=== PATIENT | female | born 1975 | race Caucasian/White ===

== ENCOUNTER 2016-12-08 13:21 | Inpatient (IN) | payer BC ==
[2016-12-08] VITALS (18 sets, daily range): BP systolic 101–122; BP diastolic 59–79
[~2016-12-08] VITALS: Ht 165.1 cm; Wt 74.5 kg
--- NOTE | 2016-12-08 13:21 | NUR ---
Pt brought in by [facility] 85 and [employer] post suspected overdose. Pt arrived with nasopharyngeal in place and is unresponsive. Dr Hackett, nursing staff and resp at bedside on arrival.
[2016-12-08] MEDS ORDERED: IV NS 1000 ML 1,000 ML IV ONE (13:30)
[2016-12-08] MEDS ORDERED: DEXTROSE 50% 50 ML DISP.SYRIN IV ONE ×2 (13:30→14:30)
[2016-12-08] MEDS ORDERED: NALOXONE 2 MG/2 ML SYRINGE ONE (13:34)
[2016-12-08] MEDS ORDERED: CYCL5TAB PO (13:37)
[2016-12-08] MEDS ORDERED: ESCI10TA PO (13:37)
[2016-12-08] MEDS ORDERED: ALPR0.5T PO (13:37)
[2016-12-08] MEDS ORDERED: ONDANSETRON 4 MG/2 ML VIAL ONE (13:37)
[2016-12-08] MEDS ORDERED: GABA300C PO (13:37)
[2016-12-08] MEDS ORDERED: HYDR-551 PO (13:37)
[2016-12-08] MEDS ORDERED: CITA40TA22 PO (13:37)
[2016-12-08] MEDS ORDERED: PANTOPRAZOLE SODIUM 40 MG VIAL ONE (13:37)
[2016-12-08] MEDS ORDERED: DEXTROSE 50% 50 ML DISP.SYRIN ONE ×2 (13:39→14:42)
[2016-12-08 13:40] LABS: ABG BASE EXCESS -10.2 mmol/L; ABG HCO3 15.7 mmol/L; ABG PCO2 34.9 mmHg (35.0-45.0); ABG PH 7.271 (7.350-7.450); ABG SITE RIGHT BRACHIAL; COHb 1.5 % (0.5-1.5); MetHb 0.4 % (0.0-1.5); O2Hb 87.3 % (94.0-97.0); VENT MODE NRB
[2016-12-08] MEDS ORDERED: NALOXONE HCL 0.4 MG/ML AMPUL IV ONE (13:45)
[2016-12-08] MEDS ORDERED: PANTOPRAZOLE SODIUM IV 40 MG in IV DEXTROSE 5% 100 ML IV ONE (13:45)
[2016-12-08] MEDS ORDERED: ONDANSETRON 4 MG/2 ML VIAL IV ONE (13:45)
[2016-12-08 13:57] LABS: BASOPHILS % (AUTO) 0.3 % (0.0-2.0); HEMATOCRIT 43.6 % (31.2-41.9); HEMOGLOBIN 14.5 g/dL (10.9-14.3); LYMPHOCYTES # (AUTO) 0.4 K/uL (20.0-40.0); LYMPHOCYTES % (AUTO) 7.1 % (20.5-51.5); MEAN CORPUSCULAR HEMOGLOBIN 29.6 uug (24.7-32.8); MEAN CORPUSCULAR HGB CONC 33 g/dL (32.3-35.6); MEAN CORPUSCULAR VOLUME 89.3 fL (75.5-95.3); MONOCYTES # (AUTO) 0.4 K/uL (2.0-10.0); MONOCYTES % (AUTO) 5.8 % (0.0-11.0); NEUTROPHILS # (AUTO) 5.4 K/uL (1.8-8.9); NEUTROPHILS % (AUTO) 86.8 % (38.5-71.5); PLATELET COUNT (AUTO) 306 K/uL (179-408); RED BLOOD CELL COUNT(AUTO) 4.89 MIL/uL (3.63-4.92); RED CELL DISTRIBUTION WIDTH 12.8 % (12.3-17.7); WHITE BLOOD COUNT (AUTO) 6.2 K/uL (3.8-11.8)
[2016-12-08] MEDS ORDERED: FLUMAZENIL 0.5 MG/5 ML VIAL IV ONE ×2 (14:00→14:15)
[2016-12-08 14:06] LABS: CARBON DIOXIDE 26 mmol/L (21-32); CHLORIDE 98 mmol/L (98-107); GFR 13 mL/min (>60); GLUCOSE 264 mg/dL (74-106); SODIUM SERUM 132 mmol/L (136-145); UREA NITROGEN, BLOOD 31 mg/dL (7-18)
[2016-12-08 14:08] LABS: CREATININE 3.9 mg/dL (0.6-1.3); POTASSIUM 8.8 mmol/L (3.5-5.1)
[2016-12-08 14:09] LABS: ACETONE, SERUM NEGATIVE (NEGATIVE)
[2016-12-08] MEDS ORDERED: IPRATROPIUM BROMIDE 0.5 MG/2.5 ML NEBU NEB ONE (14:15)
[2016-12-08] MEDS ORDERED: SODIUM BICARBONATE 4.2 % (NEUT) 5 ML VIAL IV ONE (14:15)
[2016-12-08] MEDS ORDERED: CALCIUM GLUCONATE IV 1 GM in IV DEXTROSE 5% 50 ML IV ONE (14:15)
[2016-12-08] MEDS ORDERED: ALBUTEROL SULFATE 2.5 MG/ 0.5 ML NEBU NEB ONE (14:15)
[2016-12-08] MEDS ORDERED: INSULIN REGULAR, HUMAN 1,000 UNITS/10 ML VIAL IV ONE (14:15)
[2016-12-08] MEDS ORDERED: methylPREDNISolone SOD SUCC 125 MG/2 ML VIAL IV ONE (14:15)
[2016-12-08 14:22] LABS: ALANINE AMINOTRANSFERASE 162 U/L (14-59); ALKALINE PHOSPHATASE 53 U/L (50-136); ASPARTATE AMINOTRANSFERASE 435 U/L (15-37); BILIRUBIN,TOTAL 0.8 mg/dL (0.2-1.0); TOTAL PROTEIN, SERUM 7.6 g/dL (6.4-8.2)
[2016-12-08] MEDS ORDERED: ALBUTEROL SULFATE 2.5 MG/3 ML NEBU ONE (14:31)
[2016-12-08 14:32] LABS: *BILIRUBIN,URIN NEGATIVE (NEGATIVE); *BLOOD, URINE 3+ (NEGATIVE); *CLARITY,URINE CLOUDY (CLEAR); *COLOR,URINE YELLOW (YELLOW); *KETONES,URINE NEGATIVE (NEGATIVE); *PROTEIN,URINE 2+ (NEGATIVE); *UROBILINOGEN,URINE 0.2 E.U./dl (NORMAL); LEUKOCYTE ESTERASE ,URINE NEGATIVE (NEGATIVE); NITRITE, URINE NEGATIVE (NEGATIVE); PH,URINE 5.5 (5.0-8.0); UGLUCOSE TRACE (NEGATIVE)
[2016-12-08] MEDS ORDERED: IPRATROPIUM BROMIDE 0.5 MG/2.5 ML NEBU ONE (14:32)
[2016-12-08] MEDS ORDERED: SODIUM BICARBONATE 8.4% 50 MEQ/50 ML DISP.SYRIN IV ONE (14:41)
[2016-12-08] MEDS ORDERED: CALCIUM CHLORIDE 1 GM/10 ML DISP.SYRIN IVP ONE (14:41)
[2016-12-08] MEDS ORDERED: methylPREDNISolone SOD SUCC 125 MG/2 ML VIAL ONE (14:42)
[2016-12-08] MEDS ORDERED: INSULIN REGULAR, HUMAN 300 UNIT/3 ML VIAL ONE (14:43)
[2016-12-08 14:44] LABS: *AMPHETAMINE, URINE NEGATIVE (NEGATIVE); *BARBITURATE, URINE NEGATIVE (NEGATIVE); *CANNABINOID, URINE NEGATIVE (NEGATIVE); *COCCAINE, URINE NEGATIVE (NEGATIVE); *OPIATE, URINE POSITIVE (NEGATIVE); *PHENCYCLIDINE SCREEN,URINE NEGATIVE (NEGATIVE)
[2016-12-08 14:55] LABS: WBC,URINE 0-3 /HPF (0-3)
[2016-12-08 14:56] LABS: MUCUS,URINE MODERATE /LPF (0-FEW); SQUAMOUS EPITHELIAL CELL,UR FEW /HPF (NONE SEEN); URINE AMORPHOUS URATE MANY /HPF
[2016-12-08 15:07] LABS: CREATINE KINASE, TOTAL 14660 U/L (26-192)
[2016-12-08] MEDS ORDERED: MAGNESIUM HYDROXIDE 30 ML LIQUID UDC PO PRN (15:15)
[2016-12-08] MEDS ORDERED: IV D5/ 0.9% NACL 1,000 ML IV PRN (15:15)
[2016-12-08] MEDS ORDERED: ENOXAPARIN SODIUM 40 MG/0.4 ML DISP.SYRIN SQ SCH (15:15)
--- NOTE | 2016-12-08 15:25 | NUR ---
Pt trans to CCU with ACLS guidelines in place.
--- NOTE | 2016-12-08 15:35 | NUR ---
Clinical Pharmacy Note: Vancomycin Dosing per Pharmacy Subjective: Vancomycin IV to start on this 41 yo female patient for possible PNA (patient overdosed- waiting for MD note) ht 5' 5'' wt 1505 lb Objective: BUN 31/Scr 3.9 WBC 6.2 Temperature 97.5 Assessment/Plan: Due to elevated srcr, will give vancomycin 1gm IVPB x1 today. Will review srcr in am & decide when to order vancomycin random level for further dosing. Will monitor renal function. Will follow daily.
--- NOTE | 2016-12-08 15:40 | NUR ---
admit pt.from ER.pt.lethargic no s/s of acute distress
[2016-12-08] MEDS ORDERED: INSULIN REGULAR, HUMAN 300 UNIT/3 ML VIAL SQ PRN (16:00)
[2016-12-08] MEDS ORDERED: DEXTROSE 50% 50 ML DISP.SYRIN IV PRN (16:00)
[2016-12-08 16:05] LABS: LACTIC ACID 5.4 mmol/L (0.4-2.0)
[2016-12-08] MEDS: BLOOD SUGAR DIAGNOSTIC 1 EACH STRIP VI SCH ×2 (16:22→20:10)
[2016-12-08] MEDS ORDERED: VANCOMYCIN IV 1 G in PREMIXED 0 EACH IV ONE (16:30)
--- NOTE | 2016-12-08 16:43 | NUR ---
Pt.was seen by . with new orders.
[2016-12-08] MEDS ORDERED: ALBUTEROL SULFATE 2.5 MG/3 ML NEBU NEB PRN (16:45)
--- NOTE | 2016-12-08 17:00 | NUR ---
UNABLE TO ASSES SUICIDAL ASS. DUE PT.CONDITION.
--- NOTE | 2016-12-08 17:30 | NUR ---
CALL,WAS UPDATED WITH PT.CONDITION,ORDERED LABS/STAT.
[2016-12-08] MEDS: SODIUM BICARBONATE 8.4% 150 MEQ in IV D5W 1000ML 1,000 ML IV PRN (17:45)
[2016-12-08] MEDS ORDERED: PIPERACILLIN/TAZOBACTAM/D5W 50 ML IV SCH (18:00)
[2016-12-08] MEDS ORDERED: PIPERACILLIN/TAZOBACTAM/D5W 2.25 G in PREMIXED 1 EACH IV SCH (18:00)
[2016-12-08 18:18] LABS: CALCIUM 8.4 mg/dL (8.5-10.1); CARBON DIOXIDE 26 mmol/L (21-32); CHLORIDE 103 mmol/L (98-107); CREATININE 2.7 mg/dL (0.6-1.3); GFR 20 mL/min (>60); GLUCOSE 230 mg/dL (74-106); POTASSIUM 4.3 mmol/L (3.5-5.1); SODIUM SERUM 138 mmol/L (136-145); UREA NITROGEN, BLOOD 29 mg/dL (7-18)
[2016-12-08] MEDS: PIPERACILLIN/TAZOBACTAM/D5W 2.25 G in PREMIXED 1 EACH IV SCH (18:22)
[2016-12-08 18:38] LABS: ALANINE AMINOTRANSFERASE 272 U/L (14-59); ALBUMIN 3.2 g/dL (3.4-5.0); ALKALINE PHOSPHATASE 42 U/L (50-136); ASPARTATE AMINOTRANSFERASE 795 U/L (15-37); BILIRUBIN,TOTAL 0.7 mg/dL (0.2-1.0); MAGNESIUM 1.7 mg/dL (1.8-2.4); PHOSPHOROUS 4.2 mg/dL (2.5-4.9); TOTAL PROTEIN, SERUM 6.3 g/dL (6.4-8.2)
--- NOTE | 2016-12-08 20:00 | NUR ---
Remains unresponsive, in no apparent acute distress. ABGs on 100% non-rebreather mask repeated by RT with improved results. Monitor SR without ectopy. Stable VS. Please see CCU flowsheet for full assessment and clinical data.
[2016-12-08 20:24] LABS: ABG BASE EXCESS -7.8 mmol/L; ABG HCO3 17.3 mmol/L; ABG PCO2 34.2 mmHg (35.0-45.0); ABG PH 7.322 (7.350-7.450); ABG PO2 196.4 mmHg (75.0-100.0); ABG SITE RIGHT RADIAL; ABG TOTAL HEMOGLOBIN 13.5 G/dL (12.0-16.0); COHb 0.7 % (0.5-1.5); MetHb 0.3 % (0.0-1.5); O2Hb 98.1 % (94.0-97.0)
--- NOTE | 2016-12-08 20:30 | NUR ---
Pt had very weak cough upon turning and noted slight facial grimacing. Pt however does not react to sternal rub or needle sticks. Forehead moist to touch but the rest of body warm and dry.
[2016-12-08] MEDS ORDERED: ENOXAPARIN SODIUM 30 MG/0.3 ML DISP.SYRIN SUBCUT SCH (21:00)
[2016-12-08 21:30] LABS: HEMATOCRIT 41.2 % (31.2-41.9); HEMOGLOBIN 14.1 g/dL (10.9-14.3); LYMPHOCYTES # (AUTO) 0.3 K/uL (20.0-40.0); LYMPHOCYTES % (AUTO) 4.6 % (20.5-51.5); MEAN CORPUSCULAR HEMOGLOBIN 30.1 uug (24.7-32.8); MEAN CORPUSCULAR HGB CONC 34 g/dL (32.3-35.6); MONOCYTES # (AUTO) 0.3 K/uL (2.0-10.0); MONOCYTES % (AUTO) 5.8 % (0.0-11.0); NEUTROPHILS # (AUTO) 5.4 K/uL (1.8-8.9); NEUTROPHILS % (AUTO) 89.6 % (38.5-71.5); PLATELET COUNT (AUTO) 239 K/uL (179-408); RED BLOOD CELL COUNT(AUTO) 4.67 MIL/uL (3.63-4.92); RED CELL DISTRIBUTION WIDTH 12.4 % (12.3-17.7)
[2016-12-08 22:14] LABS: CREATINE KINASE, TOTAL > 14000 U/L (26-192)
[2016-12-08] MEDS ORDERED: IV NS 1000 ML 1,000 ML IV PRN (22:30)
--- NOTE | 2016-12-08 22:30 | NUR ---
Dr. Kris White called for critical lab values. Troponin, Lactic Acid and corrected CPK levels on the rise. MD ordered repeat labs for AM and to add NS 125 ml/hr to current IV therapy along with Bicarb drip at 150 ml/hr. Will continue to observe.
[2016-12-09] VITALS (31 sets, daily range): BP systolic 90–117; BP diastolic 49–71
[2016-12-09] MEDS: BLOOD SUGAR DIAGNOSTIC 1 EACH STRIP VI SCH ×7 (00:04→23:35)
[2016-12-09] MEDS: SODIUM BICARBONATE 8.4% 150 MEQ in IV D5W 1000ML 1,000 ML IV PRN (01:43)
[2016-12-09] MEDS: PIPERACILLIN/TAZOBACTAM/D5W 2.25 G in PREMIXED 1 EACH IV SCH ×4 (01:43→21:54)
[2016-12-09] MEDS: Z GUARD REMEDY PASTE 57 GM TUBE TOP PRN (04:14)
[2016-12-09 05:35] LABS: BASOPHILS % (AUTO) 0.2 % (0.0-2.0); EOSINOPHILS % (AUTO) 0.1 % (0.0-7.0); HEMATOCRIT 38.6 % (31.2-41.9); HEMOGLOBIN 13.4 g/dL (10.9-14.3); LYMPHOCYTES # (AUTO) 0.4 K/uL (20.0-40.0); LYMPHOCYTES % (AUTO) 5.5 % (20.5-51.5); MEAN CORPUSCULAR HEMOGLOBIN 30.4 uug (24.7-32.8); MEAN CORPUSCULAR HGB CONC 35 g/dL (32.3-35.6); MEAN CORPUSCULAR VOLUME 87.4 fL (75.5-95.3); MONOCYTES # (AUTO) 0.4 K/uL (2.0-10.0); MONOCYTES % (AUTO) 5.2 % (0.0-11.0); NEUTROPHILS # (AUTO) 7.2 K/uL (1.8-8.9); PLATELET COUNT (AUTO) 230 K/uL (179-408); RED BLOOD CELL COUNT(AUTO) 4.42 MIL/uL (3.63-4.92); RED CELL DISTRIBUTION WIDTH 12.7 % (12.3-17.7)
[2016-12-09 05:42] LABS: BAND % (MANUAL) 15 % (0-10); LYMPHOCYTES % (MANUAL) 5 % (20-40); MONOCYTES % (MANUAL) 7 % (2-10); NEUTROPHILS % (MANUAL) 73 % (42-75); PLATELET ESTIMATE ADEQUATE
[2016-12-09 05:46] LABS: ALANINE AMINOTRANSFERASE 238 U/L (14-59); ALBUMIN 2.4 g/dL (3.4-5.0); ALKALINE PHOSPHATASE 30 U/L (50-136); ASPARTATE AMINOTRANSFERASE 637 U/L (15-37); BILIRUBIN,TOTAL 0.4 mg/dL (0.2-1.0); CALCIUM 7.2 mg/dL (8.5-10.1); CARBON DIOXIDE 30 mmol/L (21-32); CHLORIDE 104 mmol/L (98-107); GFR 31 mL/min (>60); GLUCOSE 173 mg/dL (74-106); MAGNESIUM 1.6 mg/dL (1.8-2.4); PHOSPHOROUS 3.7 mg/dL (2.5-4.9); POTASSIUM 4.1 mmol/L (3.5-5.1); SODIUM SERUM 141 mmol/L (136-145); TOTAL PROTEIN, SERUM 5.4 g/dL (6.4-8.2)
[2016-12-09 05:57] LABS: CREATININE 1.8 mg/dL (0.6-1.3); UREA NITROGEN, BLOOD 22 mg/dL (7-18)
[2016-12-09 05:58] LABS: CREATINE KINASE, TOTAL > 14000 U/L (26-192)
[2016-12-09] MEDS: PANTOPRAZOLE SODIUM 40 MG VIAL IV SCH (08:02)
[2016-12-09] MEDS: IV NS 1000 ML 1,000 ML IV PRN ×2 (08:02→21:55)
[2016-12-09 09:09] LABS: ABG BASE EXCESS 5.5 mmol/L; ABG HCO3 29.7 mmol/L; ABG PCO2 41.9 mmHg (35.0-45.0); ABG PH 7.469 (7.350-7.450); ABG PO2 75.6 mmHg (75.0-100.0); ABG SITE RIGHT RADIAL; ABG TOTAL HEMOGLOBIN 13.3 G/dL (12.0-16.0); COHb 1.1 % (0.5-1.5); MetHb 0.3 % (0.0-1.5); O2Hb 93.7 % (94.0-97.0); VENT MODE Nasal Cannula
[2016-12-09] MEDS ORDERED: MAGNESIUM SULFATE/D5W 100 ML IV SCH (10:15)
--- NOTE | 2016-12-09 10:36 | NUR ---
Dr. Bertrand (civil attorney) and Dr. Farrell (neurologist) here to see pt. Full report given. New orders received.
--- NOTE | 2016-12-09 11:25 | NUR ---
Brought the pt down with radiology for CT head. Pt stable and nad noted upon leaving the unit.
--- NOTE | 2016-12-09 11:45 | NUR ---
Pt returned to the unit from CT head. Pt stable and nad noted upon returning to the unit.
[2016-12-09 12:47] LABS: *BLOOD, URINE 2+ (NEGATIVE); *CLARITY,URINE SLIGHTLY CLOUDY (CLEAR); *COLOR,URINE YELLOW (YELLOW); *KETONES,URINE NEGATIVE (NEGATIVE); *PROTEIN,URINE 2+ (NEGATIVE); *UROBILINOGEN,URINE 0.2 E.U./dl (NORMAL); LEUKOCYTE ESTERASE ,URINE NEGATIVE (NEGATIVE); NITRITE, URINE NEGATIVE (NEGATIVE); UGLUCOSE NEGATIVE (NEGATIVE)
[2016-12-09 13:01] LABS: *CREATININE,URINE 185.8 mg/dL (30-125); *URINE TOTAL PROTEIN RANDOM 84.3 mg/dL (<150/24HR)
[2016-12-09 13:29] LABS: *BILIRUBIN,URIN 1+ (NEGATIVE)
--- NOTE | 2016-12-09 13:35 | NUR ---
Dr. Corea (psych) and speech therapist here to eval pt. Pt unable to respond at this time and still remains sedated. Psychiatrist and speech therapist to reassess pt tomorrow.
[2016-12-09 13:36] LABS: BACTERIA,URINE MODERATE /HPF (NONE SEEN); SQUAMOUS EPITHELIAL CELL,UR FEW /HPF (NONE SEEN); WBC,URINE 0-3 /HPF (0-3)
[2016-12-09 13:37] LABS: ICTOTEST NEGATIVE (NEGATIVE); URINE AMORPHOUS PHOSPHATES MODERATE /HPF
--- NOTE | 2016-12-09 16:35 | NUR ---
Clinical Pharmacy Note: Vancomycin Dosing per Pharmacy Subjective: Vancomycin IV to continue on this 41 yo female patient for PNA (s/p overdose) ht 5' 5'' wt 162 lb Objective: BUN 22/Scr 1.8 WBC 6.2 Temperature 97.5 Vancomycin random level: 2.1 (21 hrs post previous dose of 1gm 9srcr 3.9 on 12/08) Assessment/Plan: Due to unstable srcr, will continue to dose by fall off levels. Since vancomycin random level is sub therapeutic, will give vancomycin 1gm IVPB x1 now. Pharmacy will review srcr in am & decide when to order vancomycin random level for further dosing. Will monitor renal function. Will follow daily.
[2016-12-09] MEDS ORDERED: VANCOMYCIN IV 1 G in PREMIXED 0 EACH IV ONE (17:00)
--- NOTE | 2016-12-09 18:46 | NUR ---
End of shift: Pt resting and dozing off in bed with fall precautions and safety measures maintained. site monitor and alarms working properly wnl. IVF infusing as ordered. Bilateral soft wrist restraints in place for safety. DVT pumps on bilaterally. Pt on 3L NC. Pt stable and nad noted.
--- NOTE | 2016-12-09 20:00 | NUR ---
Episodes of restlessness and pulling out medical devices thus continuing to require bilateral sot wrist restraints. Remains obtunded, not following commands. Resp easy and unlabored, on nasal cannula 3L/min. Stable SR and VS. Fall and safety precautions observed at all times. Has been off Bicarb drip; NS infusing. Please see CCU flowsheet for full assessment and clinical data.
[2016-12-09] MEDS: ENOXAPARIN SODIUM 40 MG/0.4 ML DISP.SYRIN SQ SCH (20:29)
--- NOTE | 2016-12-09 22:45 | NUR ---
Corey Anders came to check pt's readiness for evaluation and found pt still asleep. Will return in AM to evaluate pt.
[2016-12-10] VITALS (14 sets, daily range): BP systolic 97–148; BP diastolic 57–87
--- NOTE | 2016-12-10 02:30 | NUR ---
More awake, hostile. Removing O2 and cain cath, shouting "Let me go...Let me go." Reality-orientation done and safety/fall precautions observed. Asked if pt was trying to harm self and pt will not respond to this question. Gets restless, attempts to get out of bed and then goes back to sleep.
[2016-12-10] MEDS: BLOOD SUGAR DIAGNOSTIC 1 EACH STRIP VI SCH ×5 (04:21→20:01)
[2016-12-10] MEDS: PIPERACILLIN/TAZOBACTAM/D5W 2.25 G in PREMIXED 1 EACH IV SCH ×4 (04:22→23:29)
[2016-12-10] MEDS: Z GUARD REMEDY PASTE 57 GM TUBE TOP PRN (04:22)
--- NOTE | 2016-12-10 05:00 | NUR ---
Lab works drawn by Trot with difficulty, pt combative. Pulling IV, cain and O2. Noted to readily desat as low as 84% when O2 out. Bilateral mittens applied and circ checks monitored.
[2016-12-10 05:37] LABS: BASOPHILS % (AUTO) 0.3 % (0.0-2.0); EOSINOPHILS # (AUTO) 0.1 K/uL (0.0-0.7); EOSINOPHILS % (AUTO) 1.4 % (0.0-7.0); HEMATOCRIT 35.1 % (31.2-41.9); HEMOGLOBIN 11.7 g/dL (10.9-14.3); LYMPHOCYTES # (AUTO) 0.6 K/uL (20.0-40.0); LYMPHOCYTES % (AUTO) 7.5 % (20.5-51.5); MEAN CORPUSCULAR HEMOGLOBIN 29.7 uug (24.7-32.8); MEAN CORPUSCULAR HGB CONC 33 g/dL (32.3-35.6); MEAN CORPUSCULAR VOLUME 89.1 fL (75.5-95.3); MONOCYTES # (AUTO) 0.3 K/uL (2.0-10.0); MONOCYTES % (AUTO) 3.1 % (0.0-11.0); NEUTROPHILS # (AUTO) 7.3 K/uL (1.8-8.9); NEUTROPHILS % (AUTO) 87.7 % (38.5-71.5); PLATELET COUNT (AUTO) 202 K/uL (179-408); RED BLOOD CELL COUNT(AUTO) 3.94 MIL/uL (3.63-4.92); WHITE BLOOD COUNT (AUTO) 8.3 K/uL (3.8-11.8)
[2016-12-10 05:51] LABS: ALBUMIN 2.2 g/dL (3.4-5.0); BILIRUBIN,TOTAL 0.5 mg/dL (0.2-1.0); CALCIUM 8.3 mg/dL (8.5-10.1); CREATININE 1.1 mg/dL (0.6-1.3); MAGNESIUM 2.2 mg/dL (1.8-2.4); POTASSIUM 4.2 mmol/L (3.5-5.1); TOTAL PROTEIN, SERUM 5.6 g/dL (6.4-8.2)
[2016-12-10 05:58] LABS: TROPONIN I 0.461 ng/mL (0.00-0.056)
[2016-12-10] MEDS: IV NS 1000 ML 1,000 ML IV PRN ×2 (07:44→18:47)
--- NOTE | 2016-12-10 08:00 | NUR ---
DOCTOR SHELL IN UNIT ROUNDING ON PATIENT. PATIENT WILL STAY NPO AND CAN BE TRANSFERRED TELE.
--- NOTE | 2016-12-10 08:40 | NUR ---
FELECIA CRISIS TEAM IN UNIT TO EVALUATE PATIENT FOR POTENTIAL HOLD.
[2016-12-10] MEDS: PANTOPRAZOLE SODIUM 40 MG VIAL IV SCH (09:25)
--- NOTE | 2016-12-10 10:29 | NUR ---
SPEECH THERAPY IS HERE FOR SWALLOW EVALUATION.
[2016-12-10] MEDS: VANCOMYCIN IV 1 G in PREMIXED 0 EACH IV SCH (13:33)
--- NOTE | 2016-12-10 14:03 | NUR ---
Dr. Arreola in the unit to examine the patient.
--- NOTE | 2016-12-10 14:50 | NUR ---
Clinical Pharmacy Note: Vancomycin Dosing per Pharmacy Subjective: Vancomycin IV to continue on this 41 yo female patient for PNA (s/p overdose) ht 5' 5'' wt 162 lb Objective: BUN 20/Scr 1.1 WBC 8.3 Temperature 98 Vancomycin random level: 7.9 (today am labs) Assessment/Plan: Since renal function continues to resolve and patient is clearing vanco, will start scheduled 1gm q12hr for expected trough of 15.9. First dose today at 1300. Pharmacy will review srcr in am & if changes significantly, may change to dose per level instead. Will check trough beofre 4th scheduled dose otherwise (not ordered yet). Will monitor renal function. Will follow daily.
--- NOTE | 2016-12-10 14:50 | NUR ---
PATIENT IS AWAKE AND ACTING OUT. PATIENT KEEPS PULLING OFF NC, SHE WANTS TO PULL OUT DSOUZA CATHETER, FLAME CUTTING SUPERVISOR AT BEDSIDE, PATIENT DID NOT ALLOW TO BE SEEN BY DOCTOR BHARTI. PATIENT WANTS TO GET OUT OF BED TO GO TO THE BATHROOM, EXPLAINED THAT SHE HAS A DSOUZA IN PLACE AND SHE CAN NOT GET OUT OF BED FOR HER SAFETY. CALLED DOCTOR SULEMAN TO INFORM HIM. PRN MEDICATION IS ORDERED ONE TIME DOSE. EXPLAINED IF SHE KEEPS PULLING OUT STUFF SHE CAN INJURE HERSELF AND RESTRAINTS WILL BE PLACED FOR HER SAFETY IF SHE CONTINUES.
[2016-12-10] MEDS ORDERED: OLANZAPINE 10 MG VIAL IM ONE (15:00)
--- NOTE | 2016-12-10 20:00 | NUR ---
Pt awake, angry, manipulative. Wants to go home. Is disoriented despite frequent explanations and re-orientation. On 5150 hold, Telemetry status.
--- NOTE | 2016-12-10 20:30 | NUR ---
Pt's parents came to visit; updated with pt condition and plans of care. Pt appears more calm, cooperative with their presence.
[2016-12-10] MEDS: ONDANSETRON 4 MG/2 ML VIAL IV PRN (21:29)
[2016-12-10] MEDS: ENOXAPARIN SODIUM 40 MG/0.4 ML DISP.SYRIN SQ SCH (21:30)
--- NOTE | 2016-12-10 22:00 | NUR ---
Soon as parents left, pt c/o nausea, retching and became incontinent to loose brown stools. Bedpan served which pt immediately threw on the floor with moderate amount of stools. Refused to get cleaned up stating staff trying to hurt her. Pt reassured, limit setting done. Allowed to ventilate feelings. After sometime, pt okayed to have bath/skin care.
[2016-12-11] MEDS: Z GUARD REMEDY PASTE 57 GM TUBE TOP PRN ×2 (01:06→04:14)
[2016-12-11] MEDS: VANCOMYCIN IV 1 G in PREMIXED 0 EACH IV SCH ×2 (01:06→13:00)
--- NOTE | 2016-12-11 02:00 | NUR ---
Another stool incontinence liquid brown moderate amount. Kept clean and dry. Occasional bouts non-productive cough noted.
[2016-12-11] MEDS ORDERED: OLANZAPINE 10 MG VIAL IM ONE (02:10)
[2016-12-11] MEDS: PIPERACILLIN/TAZOBACTAM/D5W 2.25 G in PREMIXED 1 EACH IV SCH ×4 (04:14→21:14)
[2016-12-11] MEDS: ONDANSETRON 4 MG/2 ML VIAL IV PRN (04:14)
--- NOTE | 2016-12-11 04:30 | NUR ---
Noted incontinent of liquid stools again. Pt finger painting, smearing stools on self, bed rails. Kept clean, dry and comfortable. Zofran for another nausea episode with relief. Appears more calm, cooperative/uncooperative at times.
[2016-12-11] MEDS: IV NS 1000 ML 1,000 ML IV PRN (04:46)
[2016-12-11] MEDS: BLOOD SUGAR DIAGNOSTIC 1 EACH STRIP VI SCH ×6 (05:00→19:57)
[2016-12-11 05:23] LABS: BASOPHILS % (AUTO) 0.2 % (0.0-2.0); EOSINOPHILS # (AUTO) 0.2 K/uL (0.0-0.7); EOSINOPHILS % (AUTO) 2.1 % (0.0-7.0); HEMATOCRIT 32.5 % (31.2-41.9); LYMPHOCYTES # (AUTO) 0.5 K/uL (20.0-40.0); LYMPHOCYTES % (AUTO) 6.5 % (20.5-51.5); MEAN CORPUSCULAR HGB CONC 34 g/dL (32.3-35.6); MEAN CORPUSCULAR VOLUME 89.1 fL (75.5-95.3); MONOCYTES # (AUTO) 0.2 K/uL (2.0-10.0); MONOCYTES % (AUTO) 2.5 % (0.0-11.0); NEUTROPHILS % (AUTO) 88.7 % (38.5-71.5); PLATELET COUNT (AUTO) 218 K/uL (179-408); RED BLOOD CELL COUNT(AUTO) 3.65 MIL/uL (3.63-4.92); RED CELL DISTRIBUTION WIDTH 13.2 % (12.3-17.7); WHITE BLOOD COUNT (AUTO) 7.9 K/uL (3.8-11.8)
[2016-12-11 05:59] LABS: ALBUMIN 2.1 g/dL (3.4-5.0); BILIRUBIN,TOTAL 0.5 mg/dL (0.2-1.0); CALCIUM 8.2 mg/dL (8.5-10.1); CREATININE 0.9 mg/dL (0.6-1.3); POTASSIUM 3.5 mmol/L (3.5-5.1); TOTAL PROTEIN, SERUM 5.5 g/dL (6.4-8.2)
--- NOTE | 2016-12-11 07:15 | NUR ---
SBAR report given to Livia, receiving claim representative. Await sitter as pt is [address] Ponce White here and condition report given.
--- NOTE | 2016-12-11 07:57 | NUR ---
PATIENT IN ROOM 216, AGITATED AND INCONTINENT OF STOOL. HOSTILE WHILE BEING CLEANED REQUESTING FOOD AND BRP. EXPLAINED TO PATIENT THAT IT IS A SAFETY ISSUE AT THIS TIME TO AMBULATE TO RESTROOM UNTIL PT HAS EVALUATED. WILL SPEAK TO DOCTOR ABOUT NPO STATUS. IV INTACT IN NO ACUTE DISTRESS, CALL LIGHT IN REACH SITTER AT BEDSIDE.
[2016-12-11] MEDS: PANTOPRAZOLE SODIUM 40 MG VIAL IV SCH (08:14)
[2016-12-11 08:19] VITALS: BP 120/75
[2016-12-11 08:34] VITALS: BP 120/75
--- NOTE | 2016-12-11 11:50 | NUR ---
NO IV POLE OR PUMPS ON FLOOR, CALLED TOLL SERVICE OBSERVER TO OBTAIN ONE IN ORDER TO HANG ABX
[2016-12-11 12:30] VITALS: BP 135/94
[2016-12-11 15:50] VITALS: BP 120/77
--- NOTE | 2016-12-11 16:22 | NUR ---
Clinical Pharmacy Note: Vancomycin Dosing per Pharmacy Subjective: Vancomycin IV to continue on this 41 yo female patient for PNA (s/p overdose) ht 5' 5'' wt 162 lb Objective: BUN 15/Scr 0.9 WBC 7.9 Temperature 98.8 Assessment/Plan: Continued on vanco 1gm q12hr for expected trough of 15.9. Ordered trough before 4th scheduled dose (due at 0030 tomorrow early am). RN to hold dose if trough >20. Will check level in am and readjust as appropriate. Will monitor renal function. Will follow daily.
[2016-12-11] MEDS: MESALAMINE 500 MG CAPSULE.SA PO SCH ×2 (16:46→20:36)
--- NOTE | 2016-12-11 18:27 | NUR ---
PT RESTING IN BED, ALL DUE MEDS GIVEN. NO SIGNS OF DISTRESS. HOSTILE AT TIMES THROUGHOUT SHIFT, 5 BOWEL MOVEMENTS DURING SHIFT. ALL SAFETY AND COMFORT MEASURES ATTENDED TO. CALL LIGHT IN REACH SITTER AT BEDSIDE
[2016-12-11 19:58] VITALS: BP 121/82
--- NOTE | 2016-12-11 20:30 | NUR ---
Patient with parents at bedside.
[2016-12-11] MEDS: LACTOBACILLUS RHAMNOSUS GG 1 EACH CAPSULE PO SCH (20:36)
[2016-12-11] MEDS: ENOXAPARIN SODIUM 40 MG/0.4 ML DISP.SYRIN SQ SCH (20:38)
[2016-12-12] VITALS: BP 120/81
[2016-12-12] MEDS: IV NS 1000 ML 1,000 ML IV PRN ×2 (01:00→20:34)
--- NOTE | 2016-12-12 01:15 | NUR ---
PATIENT REFUSED BLOOD DRAW FOR VANCO TROUGH. ROSARIO, [employer] CENTER SPECIALIST SPOKE WITH DEISY FROM PHARMACY AND RELAYED INSTRUCTIONS TO CHARGE NURSE BARB TO ADMINISTER 0100 SCHEDULED DOSE OF VANCOMYCIN 1GM. PER BARB, WILL CALL PHARMACY IN THE MORNING TO ADJUST THE VANCO TROUGH LEVEL SCHEDULE. WILL ENDORSE SITUATION TO THE AM SHIFT RN. PT NOT IN ACUTE DISTRESS, WILL CONTINUE TO MONITOR.
[2016-12-12] MEDS: VANCOMYCIN IV 1 G in PREMIXED 0 EACH IV SCH (01:25)
[2016-12-12] MEDS: PIPERACILLIN/TAZOBACTAM/D5W 2.25 G in PREMIXED 1 EACH IV SCH (03:58)
[2016-12-12] MEDS: BLOOD SUGAR DIAGNOSTIC 1 EACH STRIP VI SCH ×6 (04:00→20:29)
--- NOTE | 2016-12-12 05:23 | NUR ---
Patient slept intermittently, in no acute distress, responsive. Patient is on 5150 hold for danger to self (effective 12/10/16 at 0850, expires 12/13/16 at 0850). No expression of suicide ideation at this time. Patient is uncooperative, has been refusing accuchecks for 0000 and 0400, no hypo/hyperglycemia episodes noted. Patient stated "can you do it later, I want to sleep". Antibiotics IV administered as ordered. Safety measures in place, bed alarm on, 1:1 sitter at bedside. Will continue to monitor.
--- NOTE | 2016-12-12 05:28 | NUR ---
Patient is on tele SR, no acute distress, no c/o of chest pain, sob. Will continue to monitor.
[2016-12-12] MEDS: PANTOPRAZOLE SODIUM 40 MG TABLET.DR PO SCH (06:09)
[2016-12-12 07:20] LABS: BASOPHILS % (AUTO) 0.2 % (0.0-2.0); EOSINOPHILS # (AUTO) 0.1 K/uL (0.0-0.7); EOSINOPHILS % (AUTO) 2.7 % (0.0-7.0); HEMATOCRIT 33.5 % (31.2-41.9); HEMOGLOBIN 11.6 g/dL (10.9-14.3); LYMPHOCYTES # (AUTO) 0.5 K/uL (20.0-40.0); LYMPHOCYTES % (AUTO) 10.4 % (20.5-51.5); MEAN CORPUSCULAR HEMOGLOBIN 30.6 uug (24.7-32.8); MEAN CORPUSCULAR HGB CONC 35 g/dL (32.3-35.6); MEAN CORPUSCULAR VOLUME 88.2 fL (75.5-95.3); MONOCYTES # (AUTO) 0.6 K/uL (2.0-10.0); MONOCYTES % (AUTO) 10.9 % (0.0-11.0); NEUTROPHILS % (AUTO) 75.8 % (38.5-71.5); PLATELET COUNT (AUTO) 210 K/uL (179-408); RED CELL DISTRIBUTION WIDTH 12.8 % (12.3-17.7)
[2016-12-12 07:34] LABS: WHITE BLOOD COUNT (AUTO) 5.2 K/uL (3.8-11.8)
[2016-12-12 07:42] LABS: CALCIUM 8.2 mg/dL (8.5-10.1); CREATININE 0.8 mg/dL (0.6-1.3); POTASSIUM 3.3 mmol/L (3.5-5.1)
--- NOTE | 2016-12-12 08:00 | NUR ---
pt is alert and oriented x 4. Pt is in no acute distress. Pt with 1:1 sitter at bed side for safety. Pt on Suicidal ideation precaution. Pt currently does not verbalized killing her self and has no plan on how to kill her self. Tele SNR. Call light is within reach.
[2016-12-12] MEDS: LACTOBACILLUS RHAMNOSUS GG 1 EACH CAPSULE PO SCH ×2 (08:19→20:20)
[2016-12-12] MEDS: MESALAMINE 500 MG CAPSULE.SA PO SCH ×4 (08:19→20:20)
[2016-12-12] MEDS: PIPERACILLIN/TAZOBACTAM/D5W 50 ML IV SCH ×2 (08:27→14:46)
[2016-12-12 08:50] LABS: BAND % (MANUAL) 15 % (0-10); BASOPHILS % (MANUAL) 1 % (0-2); EOSINOPHILS % (MANUAL) 1 % (0-8); LYMPHOCYTES % (MANUAL) 14 % (20-40); MONOCYTES % (MANUAL) 10 % (2-10); NEUTROPHILS % (MANUAL) 59 % (42-75)
[2016-12-12 08:52] LABS: PLATELET ESTIMATE ADEQU
[2016-12-12 08:54] LABS: TOXIC GRANULATION 1+
[2016-12-12] MEDS ORDERED: POTASSIUM CHLORIDE 20 MEQ POWDER PACKET PO ONE (09:45)
--- NOTE | 2016-12-12 10:00 | NUR ---
Dr Corea here to see pt and put pt on 14 day hold. Faxed over 14 day hold to [facility] [place]- confirmation fax received ok.
[2016-12-12 12:08] VITALS: BP 125/88
--- NOTE | 2016-12-12 14:34 | NUR ---
Clinical Pharmacy Note: Vancomycin Dosing per Pharmacy Subjective: Vancomycin IV to continue on this 41 yo female patient for PNA (s/p overdose) ht 5' 5'' wt 162 lb Objective: BUN 8/Scr 0.9 WBC 5.2 Temperature 98.6 Vancomycin trough level: 6.6 Assessment/Plan: Since vancomycin trough level is sub-therapeutic, will change dose from vanco 1gm IVPB q12hr to vancomycin 1250mg IVPB q10h for expected trough of 15. First dose is due today at 1500. Plan to order vancomycin trough level before 4th dose of current regimen (level not yet ordered). Will monitor renal function. Will follow daily.
[2016-12-12] MEDS ORDERED: VANCOMYCIN IV 1,250 MG in IV DEXTROSE 5% 500 ML IV SCH (15:00)
[2016-12-12] MEDS: DIPHENOXYLATE HCL/ATROP SULF TABLET PO PRN ×2 (15:09→20:33)
[2016-12-12 16:00] VITALS: BP 128/87
--- NOTE | 2016-12-12 16:07 | NUR ---
helgaYPREXA TAKEN Out of pyxsis by power and recovery shift engineer.
--- NOTE | 2016-12-12 18:00 | NUR ---
Pt given lomitil earlier - effective pt denies any further diarrhea. Took out f/c per pts request and got orders from DR martin. Notifed pt to increase fluid intake to promote urination. Pt agreeable with plan of care. Call light is within reach.
[2016-12-12 20:00] VITALS: BP 121/81
--- NOTE | 2016-12-12 20:00 | NUR ---
RECIVED pt is alert and oriented x 4, in no acute distress. No c/o pain at this time. Denies SI at this time. 1:1 sitter at bed side for safety. Pt on Suicidal ideation precaution. Call light is within reach. Will continue to monitor.
[2016-12-12] MEDS: ENOXAPARIN SODIUM 40 MG/0.4 ML DISP.SYRIN SQ SCH (20:30)
[2016-12-12] MEDS: NYSTATIN SUSPENSION 5 ML LIQUID UDC PO SCH (21:38)
[2016-12-12] MEDS: LEVOFLOXACIN 500 MG TABLET PO SCH (21:38)
--- NOTE | 2016-12-12 23:00 | NUR ---
PATIENT STATING THAT SHE DOES NOT WANT HER BLOOD GLUCOSE TO BE TAKEN ANYMORE, MD OLESYA SHELL MADE AWARE, WITH NEW ORDER TO DC ACCUCHECK, WILL CARRY OUT. LAST BG AT 2151 WAS 138. NO S/S OF HYPO/HYPERGLYCEMIA NOTED OR REPORTED. WILL CONTINUE TO MONITOR.
[2016-12-13] MEDS: PANTOPRAZOLE SODIUM 40 MG TABLET.DR PO SCH (06:27)
--- NOTE | 2016-12-13 06:35 | NUR ---
End of shift note: Pt slept well per shift. No acute distress noted. Remains on room air with sat wnl. VS stable. no c/o pain or discomfort. C/o diarrhea prn med given x1, with good relief. All needs met. Ambulates to bathroom with assist. 1:1 sitter at bedside. Safety maintained.
[2016-12-13 06:41] VITALS: BP 127/82
[2016-12-13 07:55] LABS: BASOPHILS % (AUTO) 0.3 % (0.0-2.0); EOSINOPHILS # (AUTO) 0.1 K/uL (0.0-0.7); EOSINOPHILS % (AUTO) 2.7 % (0.0-7.0); HEMATOCRIT 35.5 % (31.2-41.9); HEMOGLOBIN 12.2 g/dL (10.9-14.3); LYMPHOCYTES # (AUTO) 0.6 K/uL (20.0-40.0); LYMPHOCYTES % (AUTO) 10.6 % (20.5-51.5); MEAN CORPUSCULAR HEMOGLOBIN 29.8 uug (24.7-32.8); MEAN CORPUSCULAR HGB CONC 35 g/dL (32.3-35.6); MEAN CORPUSCULAR VOLUME 86.5 fL (75.5-95.3); MONOCYTES # (AUTO) 0.8 K/uL (2.0-10.0); MONOCYTES % (AUTO) 14.1 % (0.0-11.0); NEUTROPHILS # (AUTO) 3.9 K/uL (1.8-8.9); NEUTROPHILS % (AUTO) 72.3 % (38.5-71.5); PLATELET COUNT (AUTO) 233 K/uL (179-408); RED CELL DISTRIBUTION WIDTH 12.6 % (12.3-17.7); WHITE BLOOD COUNT (AUTO) 5.4 K/uL (3.8-11.8)
[2016-12-13] MEDS: LACTOBACILLUS RHAMNOSUS GG 1 EACH CAPSULE PO SCH ×2 (08:06→20:25)
[2016-12-13] MEDS: NYSTATIN SUSPENSION 5 ML LIQUID UDC PO SCH ×4 (08:07→20:26)
[2016-12-13] MEDS: MESALAMINE 500 MG CAPSULE.SA PO SCH ×4 (08:10→21:43)
[2016-12-13 08:18] LABS: ALBUMIN 2.2 g/dL (3.4-5.0); BILIRUBIN,TOTAL 0.4 mg/dL (0.2-1.0); CALCIUM 8.4 mg/dL (8.5-10.1); CREATININE 0.8 mg/dL (0.6-1.3); MAGNESIUM 1.5 mg/dL (1.8-2.4); PHOSPHOROUS 4.3 mg/dL (2.5-4.9); POTASSIUM 3.7 mmol/L (3.5-5.1)
[2016-12-13 08:21] VITALS: BP 130/85
[2016-12-13] MEDS ORDERED: MAGNESIUM SULFATE/D5W 100 ML IV SCH ×3 (08:45→11:00)
[2016-12-13 12:00] VITALS: BP 126/78
[2016-12-13 15:06] VITALS: BP 149/78
--- NOTE | 2016-12-13 17:15 | NUR ---
PATIENT IN BED RESTING. NO S/S OF DISTRESS NOTED. DENIED PAIN, ONLY DISCOMFORT ON HER IV SITE, BUT TOLERABLE. SHE DOES NOT WANT TO BE INSERT A NEW ONE. DENIED FEELINGS OF DEPRESSION, OR WANTED TO HURT HERSELF. SITTER 1:1 FOR SAFETY. FAMILY MEMBERS AT THE BEDSIDE. TWO MEDICATIONS WERE GIVEN LATE DUE TO NPO STATUS FOR LIVER ULTRASOUND, AND REFUSING TO TAKE ONE DOSE OF NYSTATIN. SAFETY AND COMFORT PROVIDED BY STAFF. WILL CONTINUE MONITORING.
--- NOTE | 2016-12-13 19:59 | NUR ---
NEW IV CATHETER DONE BY ANAMIKA THAO. REPORT GIVEN TO RUTH SCOTT RN.
[2016-12-13 20:00] VITALS: BP 130/85
[2016-12-13] MEDS: LEVOFLOXACIN 500 MG TABLET PO SCH (20:25)
[2016-12-13] MEDS: ACETAMINOPHEN 325 MG TABLET PO PRN (20:26)
[2016-12-13] MEDS: ENOXAPARIN SODIUM 40 MG/0.4 ML DISP.SYRIN SQ SCH (20:31)
[2016-12-14] MEDS: IV NS 1000 ML 1,000 ML IV PRN (02:13)
[2016-12-14 04:14] VITALS: BP 126/87
[2016-12-14] MEDS: PANTOPRAZOLE SODIUM 40 MG TABLET.DR PO SCH (06:00)
--- NOTE | 2016-12-14 06:00 | NUR ---
PT SLEPT WELL, COOPERATIVE, IN NO ACUTE DISTRESS. PATIENT ON 14 DAY HOLD, EXPIRES 12/26/16, NO SUICIDE IDEATION EXPRESSED AT THIS TIME. SAFETY MEASURES IN PLACE, 1:1 SITTER AT BEDSIDE, BED ALARM ON. WILL CONTINUE TO MONITOR.
[2016-12-14] MEDS: MESALAMINE 500 MG CAPSULE.SA PO SCH ×4 (08:22→20:01)
[2016-12-14] MEDS: LACTOBACILLUS RHAMNOSUS GG 1 EACH CAPSULE PO SCH ×2 (08:22→20:00)
[2016-12-14] MEDS: NYSTATIN SUSPENSION 5 ML LIQUID UDC PO SCH ×4 (08:22→20:00)
[2016-12-14] MEDS: DIPHENOXYLATE HCL/ATROP SULF TABLET PO PRN (08:27)
[2016-12-14 09:01] LABS: EOSINOPHILS # (AUTO) 0.1 K/uL (0.0-0.7); HEMATOCRIT 35.5 % (31.2-41.9); HEMOGLOBIN 12.2 g/dL (10.9-14.3); LYMPHOCYTES # (AUTO) 0.6 K/uL (20.0-40.0); LYMPHOCYTES % (AUTO) 8.7 % (20.5-51.5); MEAN CORPUSCULAR HEMOGLOBIN 29.7 uug (24.7-32.8); MEAN CORPUSCULAR HGB CONC 34 g/dL (32.3-35.6); MEAN CORPUSCULAR VOLUME 86.5 fL (75.5-95.3); MONOCYTES # (AUTO) 0.4 K/uL (2.0-10.0); MONOCYTES % (AUTO) 5.6 % (0.0-11.0); NEUTROPHILS # (AUTO) 6.2 K/uL (1.8-8.9); NEUTROPHILS % (AUTO) 83.7 % (38.5-71.5); PLATELET COUNT (AUTO) 290 K/uL (179-408); RED BLOOD CELL COUNT(AUTO) 4.11 MIL/uL (3.63-4.92); RED CELL DISTRIBUTION WIDTH 12.4 % (12.3-17.7); WHITE BLOOD COUNT (AUTO) 7.3 K/uL (3.8-11.8)
[2016-12-14 10:28] LABS: ALBUMIN 2.2 g/dL (3.4-5.0); BILIRUBIN,TOTAL 0.4 mg/dL (0.2-1.0); CALCIUM 8.2 mg/dL (8.5-10.1); CREATININE 0.8 mg/dL (0.6-1.3); MAGNESIUM 1.7 mg/dL (1.8-2.4); PHOSPHOROUS 3.5 mg/dL (2.5-4.9); POTASSIUM 3.5 mmol/L (3.5-5.1)
[2016-12-14 10:52] LABS: BAND % (MANUAL) 17 % (0-10); EOSINOPHILS % (MANUAL) 1 % (0-8); LYMPHOCYTES % (MANUAL) 8 % (20-40); MONOCYTES % (MANUAL) 8 % (2-10); NEUTROPHILS % (MANUAL) 66 % (42-75); PLATELET ESTIMATE ADEQUATE
[2016-12-14 10:53] VITALS: BP 128/86
[2016-12-14] MEDS ORDERED: POTASSIUM CHLORIDE 20 MEQ POWDER PACKET PO ONE (11:15)
[2016-12-14] MEDS: MAGNESIUM SULFATE/D5W 100 ML IV SCH ×2 (11:20→12:22)
[2016-12-14] MEDS: VENLAFAXINE XR 37.5 MG CAP.SR.24H PO SCH (12:22)
[2016-12-14 14:07] LABS: HCV AB <0.1 s/co ratio (0.0-0.9); HEPATITIS A AB, IgM Negative (Negative); HEPATITIS B CORE AB, IgM Negative (Negative); HEPATITIS B CORE AB, TOTAL Negative (Negative); HEPATITIS B SURFACE AB Non Reactive (.)
[2016-12-14 16:00] VITALS: BP 120/72
[2016-12-14] MEDS: GABAPENTIN 100 MG CAPSULE PO SCH (16:01)
[2016-12-14 19:49] VITALS: BP 135/89
[2016-12-14] MEDS: LEVOFLOXACIN 500 MG TABLET PO SCH (19:56)
[2016-12-15 05:35] VITALS: BP_SYST 125; BP_SYST 133; BP_DIAS 75; BP_DIAS 88
[2016-12-15] MEDS: PANTOPRAZOLE SODIUM 40 MG TABLET.DR PO SCH (06:14)
--- NOTE | 2016-12-15 06:32 | NUR ---
PATIENT IS ON A 14 DAY HOLD (EXPIRES 12/26/16). NO SUICIDE IDEATION EXPRESSED AT THIS TIME. PATIENT C/O OF NOT BEING ABLE TO SLEEP. PT ALERT, IN NO ACUTE DISTRESS. IVF INFUSING, PATENT, NO INFILTRATION NOTED. SAFETY MEASURES IN PLACE, BED ALARM ON, CALL LIGHT WITHIN REACH, 1:1 SITTER AT BEDSIDE. WILL CONTINUE TO MONITOR.
[2016-12-15] MEDS: VENLAFAXINE XR 37.5 MG CAP.SR.24H PO SCH (08:09)
[2016-12-15] MEDS: MESALAMINE 500 MG CAPSULE.SA PO SCH ×4 (08:09→20:15)
[2016-12-15] MEDS: LACTOBACILLUS RHAMNOSUS GG 1 EACH CAPSULE PO SCH ×2 (08:09→20:15)
[2016-12-15] MEDS: NYSTATIN SUSPENSION 5 ML LIQUID UDC PO SCH ×4 (08:09→20:15)
[2016-12-15] MEDS: GABAPENTIN 100 MG CAPSULE PO SCH ×2 (08:09→15:53)
[2016-12-15 09:28] LABS: BASOPHILS % (AUTO) 0.2 % (0.0-2.0); EOSINOPHILS # (AUTO) 0.2 K/uL (0.0-0.7); EOSINOPHILS % (AUTO) 2.4 % (0.0-7.0); HEMATOCRIT 33.6 % (37-47); HEMOGLOBIN 11.7 G/DL (12.0-16.0); LYMPHOCYTES # (AUTO) 0.7 K/uL (20.0-40.0); LYMPHOCYTES % (AUTO) 8.8 % (20.5-51.5); MEAN CORPUSCULAR HEMOGLOBIN 29.7 UUG (27.0-31.0); MEAN CORPUSCULAR HGB CONC 35 g/dL (32.0-37.0); MEAN CORPUSCULAR VOLUME 85.4 FL (81.0-99.0); MONOCYTES # (AUTO) 0.3 K/uL (2.0-10.0); MONOCYTES % (AUTO) 3.3 % (0.0-11.0); NEUTROPHILS % (AUTO) 85.3 % (38.5-71.5); PLATELET COUNT (AUTO) 284 K/UL (150-450); RED BLOOD CELL COUNT(AUTO) 3.93 MIL/UL (4.2-5.4); RED CELL DISTRIBUTION WIDTH 12.1 % (11.5-14.5); WHITE BLOOD COUNT (AUTO) 8.2 K/UL (4.0-11.2)
[2016-12-15 09:41] LABS: ALBUMIN 2.2 g/dL (3.4-5.0); BILIRUBIN,TOTAL 0.3 mg/dL (0.2-1.0); CALCIUM 8.3 mg/dL (8.5-10.1); CREATININE 0.9 mg/dL (0.6-1.3); MAGNESIUM 1.6 mg/dL (1.8-2.4); PHOSPHOROUS 3.8 mg/dL (2.5-4.9); POTASSIUM 3.3 mmol/L (3.5-5.1)
[2016-12-15] MEDS ORDERED: MAGNESIUM SULFATE/D5W 100 ML IV SCH (11:00)
[2016-12-15] MEDS ORDERED: POTASSIUM CHLORIDE 20 MEQ TAB.PRT.SR PO ONE ×2 (11:00→12:00)
[2016-12-15 11:53] VITALS: BP 132/87
[2016-12-15] MEDS ORDERED: VENLAFAXINE XR 37.5 MG CAP.SR.24H PO ONE (14:45)
[2016-12-15 16:27] VITALS: BP 135/88
--- NOTE | 2016-12-15 18:18 | NUR ---
PT AWAKE IN BED, WITH FAMILY AT BEDSIDE. ALL DUE MEDICATIONS GIVEN. STILL WAITING FOR PLACEMENT. NO CHANGES THROUGHOUT SHIFT, IV INTACT AND PATENT. NO SUICIDAL IDEATIONS, 1:1 SITTER MAINTAINED THROUGHOUT SHIFT.
[2016-12-15 19:30] VITALS: BP 134/89
--- NOTE | 2016-12-15 20:00 | NUR ---
patient awake,alert, oriented x 4 no apparent distress,on suicidal ideation precautions, 14 days hold,1:1 sitter at bedside for safety,continue closely monitor.
[2016-12-15] MEDS: GABAPENTIN 300 MG CAPSULE PO SCH (20:15)
[2016-12-15] MEDS: LEVOFLOXACIN 500 MG TABLET PO SCH (20:15)
[2016-12-15] MEDS: DIPHENOXYLATE HCL/ATROP SULF TABLET PO PRN (20:47)
--- NOTE | 2016-12-15 21:00 | NUR ---
Lonox 1 tab po given for c/o diarrhea x3.
[2016-12-16] MEDS: PANTOPRAZOLE SODIUM 40 MG TABLET.DR PO SCH (06:10)
--- NOTE | 2016-12-16 06:21 | NUR ---
PATIENT SLEPT 8 HOURS/SHIFT,REFUSED BLOOD DRAWN FOR LAB THIS AM,STATS LATER ,STILL WANTS TO SLEEP,NO DIARRHEA AFTER LONOX WAS GIVEN,PATIENT CALM, NO SUICIDAL IDEATIONS,CONTINUE 1:1 SITTER FOR SAFETY.
[2016-12-16 06:40] VITALS: BP 135/94
[2016-12-16] MEDS: LACTOBACILLUS RHAMNOSUS GG 1 EACH CAPSULE PO SCH ×2 (07:55→20:07)
[2016-12-16] MEDS: NYSTATIN SUSPENSION 5 ML LIQUID UDC PO SCH ×4 (07:55→20:07)
[2016-12-16] MEDS: GABAPENTIN 100 MG CAPSULE PO SCH ×2 (07:56→17:08)
[2016-12-16] MEDS: MESALAMINE 500 MG CAPSULE.SA PO SCH ×4 (07:56→20:07)
[2016-12-16] MEDS ORDERED: VENLAFAXINE XR 75 MG CAP.SR.24H PO SCH (09:00)
[2016-12-16 09:40] LABS: BASOPHILS # (AUTO) 0.3 K/uL (0.0-8.0); BASOPHILS % (AUTO) 2.1 % (0.0-2.0); EOSINOPHILS # (AUTO) 0.1 K/uL (0.0-0.7); HEMATOCRIT 35.6 % (37-47); HEMOGLOBIN 12.4 G/DL (12.0-16.0); LYMPHOCYTES # (AUTO) 0.9 K/uL (20.0-40.0); LYMPHOCYTES % (AUTO) 7.1 % (20.5-51.5); MEAN CORPUSCULAR HEMOGLOBIN 29.8 UUG (27.0-31.0); MEAN CORPUSCULAR HGB CONC 35 g/dL (32.0-37.0); MEAN CORPUSCULAR VOLUME 85.6 FL (81.0-99.0); MONOCYTES # (AUTO) 0.4 K/uL (2.0-10.0); MONOCYTES % (AUTO) 3.3 % (0.0-11.0); NEUTROPHILS # (AUTO) 10.6 K/uL (1.8-8.9); NEUTROPHILS % (AUTO) 86.5 % (38.5-71.5); PLATELET COUNT (AUTO) 343 K/UL (150-450); RED BLOOD CELL COUNT(AUTO) 4.16 MIL/UL (4.2-5.4); RED CELL DISTRIBUTION WIDTH 12.3 % (11.5-14.5); WHITE BLOOD COUNT (AUTO) 12.3 K/UL (4.0-11.2)
[2016-12-16] MEDS: ACETAMINOPHEN 325 MG TABLET PO PRN ×2 (09:40→19:58)
[2016-12-16 09:49] LABS: CALCIUM 8.7 mg/dL (8.5-10.1); CREATININE 0.9 mg/dL (0.6-1.3); MAGNESIUM 1.5 mg/dL (1.8-2.4); PHOSPHOROUS 4.2 mg/dL (2.5-4.9); POTASSIUM 3.8 mmol/L (3.5-5.1)
[2016-12-16] MEDS ORDERED: CEFTRIAXONE 1 G in IV DEXTROSE 5% 50 ML IV SCH (10:00)
[2016-12-16 10:55] LABS: *BILIRUBIN,URIN NEGATIVE (NEGATIVE); *BLOOD, URINE NEGATIVE (NEGATIVE); *CLARITY,URINE CLEAR (CLEAR); *COLOR,URINE YELLOW (YELLOW); *KETONES,URINE NEGATIVE (NEGATIVE); *PROTEIN,URINE NEGATIVE (NEGATIVE); *UROBILINOGEN,URINE 0.2 E.U./dl (NORMAL); LEUKOCYTE ESTERASE ,URINE NEGATIVE (NEGATIVE); NITRITE, URINE NEGATIVE (NEGATIVE); PH,URINE 5.5 (5.0-8.0); UGLUCOSE NEGATIVE (NEGATIVE)
[2016-12-16 11:05] LABS: BACTERIA,URINE FEW /HPF (NONE SEEN); RBC,URINE 0-3 /HPF (0-3); SQUAMOUS EPITHELIAL CELL,UR FEW /HPF (NONE SEEN)
[2016-12-16 11:58] VITALS: BP 138/94
[2016-12-16 12:52] LABS: ALBUMIN 2.5 g/dL (3.4-5.0); BILIRUBIN,DIRECT 0.1 mg/dL (0.0-0.2); BILIRUBIN,TOTAL 0.5 mg/dL (0.2-1.0); TOTAL PROTEIN, SERUM 6.7 g/dL (6.4-8.2)
[2016-12-16] MEDS: MAGNESIUM SULFATE/D5W 100 ML IV SCH ×2 (13:19→14:15)
[2016-12-16] MEDS ORDERED: PHENAZOPYRIDINE HCL 100 MG TABLET PO SCH (14:00)
[2016-12-16 17:10] VITALS: BP 142/93
--- NOTE | 2016-12-16 17:37 | NUR ---
Dr. Umesh Dodson will be accepting patient. Addendum: 12/16/16 at 1739 by MIKE BARAJAS RN [id number] Information received from
--- NOTE | 2016-12-16 17:39 | NUR ---
The patient's 5[address] Court today for DTS. This debrander had been in contact with her CM from [facility] [employer] - [employer] - Dr. Hansen [ ]. He spoke to them about referrals in the community. Re-faxed her information to the following adult psychiatric units: 1. [facility] - - - Nader stated that they are currently full 2. [facility] - ; - ; - Shania stated they are full at this time but they will call the unit once they have a bed available 3. [facility] [place] - - - No beds available per Ora. 4. [facility] - - - Naomie stated that their unit RN will review the case and that they will call the unit if they are able to accommodate the patient. 5. [facility] - - - Elijah stated that the patient might have a co-pay of $875.00. Spoke to the patient and she is in agreement to pay the co-pay. Elijah will get the report from the RN and will see if they can accommodate her today. 6. [facility] - - - Alycia said they have no beds available 7. [facility] - ext. [phone] - - Tarsha said they received her information but don't have any beds available. 8. [facility] - - - Ousmane said they have her inquiry but they are waiting for a female bed to open up 9. [facility] - - - Kateryna called to talk to the RN to see if the patient is medically cleared. She stated that the case looks good but she still needs clearance from administration. They will call the unit once they have confirmation on the bed. 10. [facility] - ; - - Tawanna stated they are not able to take the patient because of her high labs ALT and AST. 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 11. [facility] - - - Left a message 12. [facility] - - - Aby said they are full and they are also looking for beds for their overflow patients 13. [facility] - ; - - Parminder stated they do not have any beds available 14. [facility] - ext. [phone] - Was transferred to their psych intake but there was no answer. Updated the patient and her parents in her room and they stated they understood. Updated her RN, Ina, on the situation. CM/SW will follow-up.
--- NOTE | 2016-12-16 18:24 | NUR ---
Patient accepted at [facility]. Ambulance called. food and nutrition services supervisor time 9 pm.
[2016-12-16] MEDS ORDERED: Acetaminophen PO (19:33)
[2016-12-16] MEDS ORDERED: PANT40TA2 PO (19:33)
[2016-12-16] MEDS ORDERED: VENL75CA56 PO (19:33)
[2016-12-16] MEDS ORDERED: MAGN400O4 PO (19:33)
[2016-12-16] MEDS ORDERED: DIPHENOXYLATE HCL PO (19:33)
[2016-12-16] MEDS ORDERED: [UNRECOGNIZED DRUG - OTHER] PO (19:33)
[2016-12-16] MEDS ORDERED: Phenazopyridine Hcl PO (19:33)
[2016-12-16] MEDS ORDERED: LACT1CAP57 PO (19:33)
[2016-12-16] MEDS ORDERED: MESA250C2 PO (19:33)
[2016-12-16] MEDS ORDERED: Nystatin PO (19:33)
[2016-12-16] MEDS ORDERED: ALBU2.5V7 NEB (19:33)
[2016-12-16] MEDS ORDERED: Gabapentin PO (19:33)
[2016-12-16] MEDS ORDERED: MULT-70 PO (19:33)
[2016-12-16] MEDS ORDERED: LEVO500T15 PO (19:33)
[2016-12-16 19:44] VITALS: BP 129/88
--- NOTE | 2016-12-16 20:00 | NUR ---
RECEIVED REPORT THAT PATIENT IS TO BE DISCHARGED TO [facility]. PATIENT IS A/O X4. SITTER AT AT BEDSIDE FOR SAFETY. DENIES PAIN OR DISCOMFORT. NO RESP. DISTRESS NOTED. CALL LIGHT IN REACH. ALL NEEDS ATTENDED. WILL CONTINUE TO MONITOR.
[2016-12-16] MEDS: GABAPENTIN 300 MG CAPSULE PO SCH (20:07)
[2016-12-16] MEDS: LEVOFLOXACIN 500 MG TABLET PO SCH (20:07)
--- NOTE | 2016-12-16 20:45 | NUR ---
AMBULANCE AT BEDSIDE FOR PICK-UP. CALLED [facility], REPORT ALREADY GIVEN TO DUDLEY PER DAYSHIFT NURSE.
--- NOTE | 2016-12-16 20:55 | NUR ---
PATIENT LEFT FACILITY IN STABLE CONDITION.
== END 2016-12-16 20:55 | DRG 917 ==
LOC: ER 13:21 → CCU 15:25 → TELE 12-11 07:18 → MED 12-12 11:52
PROVIDERS: ADMIT Family Medicine; ATTEND Family Medicine
DX: T42.4X2A Poisoning by benzodiazepines, intentional self-harm, initial encounter (principal); G92 Toxic encephalopathy; E43 Unspecified severe protein-calorie malnutrition; N17.0 Acute kidney failure with tubular necrosis; J69.0 Pneumonitis due to inhalation of food and vomit; J96.01 Acute respiratory failure with hypoxia; I21.4 Non-ST elevation (NSTEMI) myocardial infarction; K72.00 Acute and subacute hepatic failure without coma; K50.90 Crohn's disease, unspecified, without complications; M62.82 Rhabdomyolysis; G93.1 Anoxic brain damage, not elsewhere classified; E87.2 Acidosis; D68.59 Other primary thrombophilia; B37.0 Candidal stomatitis; K50.911 Crohn's disease, unspecified, with rectal bleeding; N39.0 Urinary tract infection, site not specified; N18.9 Chronic kidney disease, unspecified; Y92.009 Unspecified place in unspecified non-institutional (private) residence as the place of occurrence of the external cause; E87.5 Hyperkalemia; E83.42 Hypomagnesemia; E86.0 Dehydration; E66.9 Obesity, unspecified; Z68.27 Body mass index [BMI] 27.0-27.9, adult; T40.602A Poisoning by unspecified narcotics, intentional self-harm, initial encounter; E11.22 Type 2 diabetes mellitus with diabetic chronic kidney disease; I12.9 Hypertensive chronic kidney disease with stage 1 through stage 4 chronic kidney disease, or unspecified chronic kidney disease; K21.9 Gastro-esophageal reflux disease without esophagitis; F32.9 Major depressive disorder, single episode, unspecified; E87.6 Hypokalemia; Z81.8 Family history of other mental and behavioral disorders; Z86.73 Personal history of transient ischemic attack (TIA), and cerebral infarction without residual deficits
CPT/HCPCS: 36415; 36600; 51702; 70030-TC; 70450; 71010; 76705; 80307; 83605; 83735; 84100; 84156; 84300; 85025; 85610; 86704; 86705; 86706; 86709; 86803; 87040; 87086; 92526; 92610; 93005; 93307; 97001; 97116; 97530; A4663; C9113; G0480-TC; J0696; J1650; J1815; J2310; J2358; J2405; J2543; J2930; J3370; J3475; J3490; J3590; J7030; J7040; J7042; J7060; J7070